=== PATIENT | female | born 1960 | race Caucasian/White ===

== ENCOUNTER 2020-02-27 11:56 | Inpatient (IN) ==
[2020-02-27] MEDS ORDERED: CeFAZolin Syr 3,000MG/30 ML 3,000 MG/30 ML SYRINGE IVPB ONE (12:22)
[2020-02-27] MEDS ORDERED: Acetaminophen IV 1,000 MG/100 ML BAG IVPB ONE (12:23)
[2020-02-27] MEDS ORDERED: Ondansetron 4 MG/2 ML VIAL IVP ONE (12:51)
[2020-02-27] MEDS ORDERED: *HR* OxyCODONE Immed Rel 5 MG TABLET PO PRN (12:51)
[2020-02-27] MEDS ORDERED: *HR* HYDROmorphone PF 0.5 MG/0.5 ML SYRINGE IVP PRN (12:51)
[2020-02-27] MEDS ORDERED: *HR* Propofol 200 MG/20 ML VIAL IVP ONE (13:02)
[2020-02-27] MEDS ORDERED: Lidocaine -MPF 4% 5 ML AMPUL ONE (13:02)
[2020-02-27] MEDS ORDERED: *HR* Succinylcholine 200 MG/10 ML VIAL IVP ONE (13:02)
[2020-02-27] MEDS ORDERED: Lidocaine -MPF 2% 2 ML VIAL ONE (13:02)
[2020-02-27] MEDS ORDERED: Dexamethasone 4 MG/ML VIAL ONE (13:02)
[2020-02-27] MEDS: Ringers Solution, Lactated 1,000 ML IVC SCH ×2 (13:04→15:48)
[2020-02-27] MEDS ORDERED: Ropivacaine/PF 0.5% 30 ML VIAL ONE (13:28)
[2020-02-27] MEDS ORDERED: ROPIVACAINE/PF/NS 0.25% 1 EACH SYRINGE INTRAART ONE (13:28)
[2020-02-27] MEDS ORDERED: *HR* Midazolam HCl 2 MG/2 ML VIAL ONE (13:31)
[2020-02-27] MEDS ORDERED: *HR* FentaNYL (PF) 100 MCG/2 ML VIAL ONE ×2 (13:31→14:44)
[2020-02-27] MEDS ORDERED: Ethanol\\Acetic Acid\\Na Ace\\Ben 1,000 ML IRRIG.SOLN IR ONE (13:46)
[2020-02-27] MEDS ORDERED: *HR* PHENYLEPHRINE 1,000 MCG/10 ML SYRINGE IVP ONE (14:31)
[2020-02-27] MEDS ORDERED: Vancomycin 1,000 MG VIAL ONE (14:38)
[2020-02-27 16:11] LABS: Hematocrit 42.1 % (35.3-44.9); Hemoglobin 13.3 g/dL (11.5-15.4)
[2020-02-27] MEDS ORDERED: *HR* OxyCODONE/APAP 5/325 TABLET PO PRN (16:41)
[2020-02-27] MEDS ORDERED: D5% in Water 1,000 ML IVC PRN (16:41)
[2020-02-27] MEDS ORDERED: MOM Conc 10 ML UD.LIQ PO PRN (16:41)
[2020-02-27] MEDS ORDERED: *HR* Dextrose 50 % in Water (Vial) 50 ML VIAL IVP PRN (16:41)
[2020-02-27] MEDS ORDERED: Naloxone 0.4 MG/ML INJ IVP PRN (16:41)
[2020-02-27] MEDS ORDERED: Ondansetron 4 MG/2 ML VIAL IVP PRN (16:41)
[2020-02-27] MEDS ORDERED: Dextrose Gel 15 GM/37.5 ML TUBE PO PRN ×2 (16:41)
[2020-02-27] MEDS ORDERED: Ringers Solution, Lactated 1,000 ML IVC SCH (16:41)
[2020-02-27] MEDS ORDERED: Sennosides 8.6 MG TABLET PO PRN (16:41)
[2020-02-27] MEDS: Insulin LISPRO 300 UNITS/3 ML VIAL SQ SCH (17:41)
[2020-02-27] MEDS ORDERED: *HR* Enoxaparin 30 MG/0.3 ML SYRINGE SQ SCH (18:00)
[2020-02-27] MEDS: *HR* Enoxaparin 30 MG/0.3 ML SYRINGE SQ SCH (18:38)
[2020-02-27] MEDS: CeFAZolin 2 GM/120 ML BAG IVPB SCH (20:19)
[2020-02-27] MEDS: Tiotropium 18 MCG inhalation IH SCH (20:19)
[2020-02-27] MEDS ORDERED: Melatonin 3 MG TABLET PO SCH (21:00)
[2020-02-27] MEDS ORDERED: Insulin LISPRO 300 UNITS/3 ML VIAL SQ SCH (21:00)
[2020-02-28] MEDS: *HR* Enoxaparin 30 MG/0.3 ML SYRINGE SQ SCH (05:01)
[2020-02-28] MEDS: CeFAZolin 2 GM/120 ML BAG IVPB SCH (05:01)
[2020-02-28 06:21] LABS: Hematocrit 39.4 % (35.3-44.9); Hemoglobin 13.1 g/dL (11.5-15.4)
[2020-02-28] MEDS: Tiotropium 18 MCG inhalation IH SCH (07:29)
[2020-02-28 07:49] LABS: BUN/Creatinine Ratio 20 (6-26); Blood Urea Nitrogen 17 mg/dL (8-23); Calcium 8.6 mg/dL (8.6-10.3); Carbon Dioxide 21 mEq/L (23-29); Chloride 109 mEq/L (98-107); Glucose 214 mg/dL (70-105); Osmolality,Calculated 300 (280-300); Potassium 4.1 mEq/L (3.5-5.1); Sodium 141 mEq/L (136-145); eGFR For African Americans > 60 (> 60); eGFR For Non-African Americans > 60 (> 60)
[2020-02-28] MEDS: Insulin LISPRO 300 UNITS/3 ML VIAL SQ SCH ×2 (08:30→12:27)
[2020-02-28] MEDS ORDERED: Cyanocobalamin (B-12) 1,000 MCG TABLET PO SCH (09:00)
[2020-02-28] MEDS ORDERED: lisinopriL 20 MG TABLET PO SCH (09:00)
[2020-02-28] MEDS ORDERED: FLUoxetine 20 MG CAPSULE PO SCH (09:00)
[2020-02-28] MEDS ORDERED: Topiramate 100 MG TABLET PO SCH (09:00)
[2020-02-28] MEDS ORDERED: Multivit/Ca/Min/Fe/FA 1 TAB TABLET PO SCH (09:00)
[2020-02-28 11:12] VITALS: BP 118/65
[2020-02-28] MEDS ORDERED: Albuterol 2.5 MG/3 ML NEBULIZER IH ONE (11:30)
== END 2020-02-28 15:13 | disposition home health service (06) | DRG 483 ==
LOC: SAMDAY 11:56 → 3NENU 16:11
PROVIDERS: ADMIT Orthopaedic Surgery; ATTEND Orthopaedic Surgery